=== PATIENT | female | born 1970 | race Caucasian/White ===

== ENCOUNTER 2025-03-16 08:24 | Outpatient (CLI) | payer BC, OTHER | END 2025-03-16 08:25 | disposition home or self-care (01) | LOC: CSHRAD 08:24 | PROVIDERS: ATTEND Internal Medicine Rheumatology | DX: M47.817 Spondylosis without myelopathy or radiculopathy, lumbosacral region (principal); K80.20 Calculus of gallbladder without cholecystitis without obstruction | CPT/HCPCS: 72110 ==